=== PATIENT | female | born 1980 | race Caucasian/White ===

== ENCOUNTER 2018-10-14 07:47 | Day surgery (SDC) | payer OTHER, SELFPAY ==
[2018-10-14] VITALS (8 sets, daily range): BP systolic 96–117; BP diastolic 61–72; PULSE 57–72; RESP 14–16; TEMP 36.1–37.4; O2SAT 97–100; BMI 21.5
[2018-10-14 08:15] LABS: Internal QC Validated? YES +Cl - CLEAR BKGD; Pregnancy, Urine Negative Negative
[2018-10-14] MEDS: Vancomycin IV 1,000 MG/200 ML BAG 200 MG IV (08:37)
--- NOTE | 2018-10-14 09:47 | PCM.OPRPT ---
Problem List (1) Urinary retention Status: Acute Report of Operation Date of Procedure: 10/14/18 Pre-Operative Diagnosis: urinary retention Post-Operative Diagnosis: same Surgery/Procedure Performed:: Interstim Lead and IPG replacement Description of Surgical Findings:: Lead and IPG removed. New lead and IPG replaced into same locations. Good position with good phill on all 4 leads. Type of Anesthesia:: MAC Specimen's removed: Vancomycin Estimated Blood Loss (mL): 5cc Description of Procedure: The patient is a 38-year-old female with an InterStim that was inserted 7 years ago for urinary retention. The InterStim stopped working and started causing pain. Impedances were identified in the office. Informed consent was obtained for InterStim lead and IPG replacement. The patient was taken to the operating room and placed on the operating room table in prone position. Anesthesia monitored the head, neck, airway, IV access and vital signs throughout the case. Once anesthesia was appropriately administered, she was prepped and draped in usual sterile fashion. At this time the existing incisions for her lead insertion site and IPG were infiltrated with lidocaine 1% with epinephrine in a 1-100,000 ratio. An incision was made over the existing incisions. The fluoroscopy revealed that the lead was likely curved towards her posterior aspect. The lead was then removed in its entirety. The IPG was also removed. The needle was inserted through the S3 foramen under fluoroscopic visualization. Good phill and toe flexion were achieved. The dilator was then used and the new lead was inserted. Good response was achieved on all 4 leads. An AP view revealed good positioning of the lead in the S3 foramen curved laterally. The lead was then tunneled into the existing pocket site where the new IPG was then attached using the torque wrench and placed into the existing pocket. No impedances were identified at this time. The pocket and the lead site were closed with 3-0 interrupted Vicryl followed by 4-0 subcuticular Vicryl. The incisions were then covered with Dermabond. The patient was awakened and taken to the recovery room in good condition. There were no complications during this procedure. Grafts/Implants Used: Interstim lead and IPG - Complications none - Admit VTE Documentation VTE Present on Admission: No VTE Mechan Device Prophylaxis: None VTE Pharm Prophylaxis ordered?: No Reason prophylaxis not ordered:: Treatment Not Indicated
--- NOTE | 2018-10-14 09:50 | DCINST_ITS ---
Discharge Diet: No Restrictions Discharge Activity: May not drive while taking narcotic pain medications., - - ok to shower tomorrow. No tub bathing. Keep incisions as dry as possible May resume sexual activity in: 1 week Call your doctor if your incision/area has: Continuous Slow Oozing, Sudden Increased Bleeding, Increased Pain/ Swelling, Increased Redness, Foul Smelling Discharge, Swelling at the incision site Call your doctor if you observe: Fever of 101 or Higher, Inability to urinate, Inability to have a bowel movement, Shortness of breath, Chest pain, Calf discomfort, Uncontrolled pain Allergies/Adverse Reactions: Allergies cefaclor [From Ceclor] Allergy (Verified 10/08/18 08:07) Unknown Medications to take at Discharge Calcium Carbonate [Calcium] 500 mg PO DAILY 10/08/18 Docusate Sodium [Stool Softener] 50 mg PO DAILY 10/08/18 Loratadine [Claritin] 10 mg PO DAILY 10/08/18 Multivit with Calcium,Iron,Min [Multiple Vitamins For Women] 1 each PO DAILY 10/08/18 Sumatriptan Succinate [Imitrex] 100 mg PO PRN PRN 10/08/18 Primary Care Physician: Jimi Guerra,Out of [Primary Care Provider] - Test Results: Test results from this visit will be discussed in further detail at your follow- up appointment, if applicable. Please Follow Up With: Yasmeen Christian MD When: in 1-2 weeks. Proposed Discharge Date: 10/14/18
== END 2018-10-14 12:15 | disposition home or self-care (01) ==
LOC: SDC 07:48 → AC 07:51
PROVIDERS: Anesthesiology; Referring Provider Urology; Visit Provider Urology
PROC: (CPT 64581; principal; 2018-10-14 09:10)
DX: N31.9 Neuromuscular dysfunction of bladder, unspecified (principal); R33.9 Retention of urine, unspecified; R35.1 Nocturia; D64.9 Anemia, unspecified; G43.909 Migraine, unspecified, not intractable, without status migrainosus; Z79.899 Other long term (current) drug therapy
CPT/HCPCS: 64581; 64590; 76000; 81025; J7120; C1767; C1778; J2405

== ENCOUNTER → 2019-08-11 | Outpatient (CLI) | payer OTHER, SELFPAY ==
[2018-10-14 08:17] VITALS: BMI 21.5
== END | disposition home or self-care (01) ==
LOC: LABSPEC 08:42
PROVIDERS: Referring Provider Urology; Visit Provider Urology
DX: R30.0 Dysuria (principal)
CPT/HCPCS: 87086; 87088

== ENCOUNTER 2019-08-18 10:51 | Day surgery (SDC) | payer OTHER, SELFPAY ==
[2018-10-14 08:17] VITALS: BMI 21.5
[2019-08-18] VITALS (11 sets, daily range): BP systolic 99–115; BP diastolic 53–83; PULSE 66–88; RESP 16; TEMP 36.7–36.8; O2SAT 100; BMI 21.5
[2019-08-18 11:27] LABS: Internal QC Validated? YES +Cl - CLEAR BKGD; Pregnancy, Urine Negative Negative
[2019-08-18] MEDS: Lactated Ringers 1,000 ML 100 ML IV ×2 (11:34→14:11)
[2019-08-18] MEDS: Vancomycin IV 1,000 MG/200 ML BAG 200 MG IV (11:34)
--- NOTE | 2019-08-18 12:00 | RAD_ITS ---
STUDY: X-RAY - PELVIS REASON FOR EXAM: Female, 38 years old. CLINICAL HISTORY: INTERSTIM REMOVAL AND NEW REINSERTION, FLUORO TIME 22 SEC, 6.05 MGY, 3 IMAGES COMPARISON: None. TECHNIQUE: 3 image(s) of InterStim removal and reinsertion performed by Physician: PAM COSME were submitted for evaluation. FINDINGS: 3 images were provided for review. Stimulator leads are seen overlying the sacrum. The visualized osseous structures and soft tissues are unremarkable. RAD/Pelvis 1 or 2 Views IMPRESSION: 3 images from an InterStim lead removal and reinsertion Please see procedure report for further details. Electronically Signed: Johnny Gilmore, at 19:00 EDT Tel , Service support ,
--- NOTE | 2019-08-18 12:32 | OP.PCM_ITS ---
Problem List (1) Urinary retention Status: Acute Report of Operation Date of Procedure: 08/18/19 Pre-Operative Diagnosis: urinary retention, pain Post-Operative Diagnosis: same Surgery/Procedure Performed:: Replacement Interstim Lead and IPG Type of Anesthesia:: MAC Estimated Blood Loss (mL): 20cc Description of Procedure: The patient is a 38-year-old female that has had an InterStim for urinary retention for several years. The current lead she has was placed several years ago and the battery in October 2018. She was doing well until approximately 2 months ago when she developed pain at the battery site regardless of programming. The more the battery power was turned up, the more pain she experienced. On evaluation in the office, the battery seem to be functioning with good life remaining. She was tender at the pocket site with no evidence of infection including fluctuance, erythema, warmth to the site or other skin changes. After discussing the situation with the clearance representative from [employer], and turning the unit off, with continued pain, decision was made to replace the unit. Informed consent was obtained. Patient was taken to the operating room and placed in the prone position on the operating room table. She is appropriately secured to the table and padded in dependent portions. Anesthesia monitored the head, neck, airway, IV access and vital signs throughout the case. Once anesthesia was appropriately administered, the patient was prepped and draped in usual sterile fashion. At this time using fluoroscopic evaluation, the landmarks of the S3 foramen and ischial spines were marked on the patient's skin. The areas overlying these landmarks were infiltrated with lidocaine with epinephrine. The needle was inserted to the patient's right side S3 foramen and good phill response and toe flexion was achieved. The skin site was then opened and dilated, and the tined lead was inserted with good results specifically on leads I, II and III with no response on lead 0. The lead was repositioned and this was the best response obtained. Of note the site was bleeding and this was felt to contaminate the trial on lead 0. The positioning was checked in AP view as well. At this time the new pocket site on the patient's right side was selected, infiltrated and opened using the knife followed by Bovie cautery and blunt dissection. The lead was then tunneled into the pocket, it was cleaned and inserted into the new IPG and secured using the screwdriver. The IPG was then placed into the pocket and impedances were checked and found to be appropriate. The pocket was closed with 3-0 Vicryl interrupted suture followed by 4-0 Vicryl subcuticular suturing and Dermabond. The area overlying the old IPG and the lead sites were both infiltrated. The skin was opened and dissection continued until the IPG was brought into the field. Using the screwdriver the lead was removed and the IPG was sent for evaluation. Using the incision over the lead entry site, the lead was grasped and removed in its entirety. The sites were then irrigated and closed using 3-0 Vicryl followed by 4-0 subcuticular suturing. Over the small lead incisions, Steri-Strips and OpSite were placed. Dermabond was placed on the IPG site. The patient was then awakened and taken to the recovery room in good condition. There were no complications during the procedure. - Complications none - Admit VTE Documentation VTE Present on Admission: No VTE Mechan Device Prophylaxis: None VTE Pharm Prophylaxis ordered?: No Reason prophylaxis not ordered:: Treatment Not Indicated
--- NOTE | 2019-08-18 12:35 | PCM.DC.URO ---
Discharge Diet: No Restrictions Discharge Activity: May not drive while taking narcotic pain medications. May resume sexual activity in: 2 weeks Call your doctor if your incision/area has: Continuous Slow Oozing, Sudden Increased Bleeding, Increased Pain/ Swelling, Increased Redness, Foul Smelling Discharge, Swelling at the incision site Call your doctor if you observe: Fever of 101 or Higher, Inability to urinate, Inability to have a bowel movement, Uncontrolled pain Allergies/Adverse Reactions: Allergies cefaclor [From Ceclor] Allergy (Verified 08/18/19 11:16) Unknown Medications to take at Discharge Calcium Carbonate [Calcium] 500 mg PO DAILY 10/08/18 Docusate Sodium [Stool Softener] 50 mg PO DAILY 10/08/18 Loratadine [Claritin] 10 mg PO DAILY 10/08/18 Multivit with Calcium,Iron,Min [Multiple Vitamins For Women] 1 each PO DAILY 10/08/18 Sumatriptan Succinate [Imitrex] 100 mg PO PRN PRN 10/08/18 Fluticasone 0.05% [Flonase Nasal [place]] 2 spray NASAL DAILY 08/11/19 Oxycodone HCl/Acetaminophen [Percocet 5/325] 2 tablet PO Q8H PRN PRN 7 Days #20 tablet 08/18/19 Smz/Tmp Ds [Bactrim Ds] 1 tab PO BID 3 Days #6 tab 08/18/19 The following prescriptions were given: Smz/Tmp Ds [Bactrim Ds] 1 tab PO BID 3 Days #6 tab Transmission Status: Pending to [facility] Oxycodone HCl/Acetaminophen [Percocet 5/325] 2 tablet PO Q8H PRN PRN 7 Days #20 tablet PRN Reason: Pain Transmission Status: Sent to [facility] Primary Care Physician: OLIVER VICENTE [Other] Test Results: Test results from this visit will be discussed in further detail at your follow-up appointment, if applicable. Please Follow Up With: Yasmeen Christian MD When: call for appt in 2 weeks Proposed Discharge Date: 08/18/19
[2019-08-18] MEDS: oxyCODONE 5 MG Tablet 10 MG PO (15:26)
[2019-08-18] MEDS: Acetaminophen 325 MG Tablet 650 MG PO (15:26)
== END 2019-08-18 15:39 | disposition home or self-care (01) ==
LOC: SDC 10:54 → AC 10:58
PROVIDERS: Referring Provider Urology; Visit Provider Urology
PROC: (CPT 64590; principal; 2019-08-18 12:35)
DX: N31.9 Neuromuscular dysfunction of bladder, unspecified (principal); R33.9 Retention of urine, unspecified; R10.2 Pelvic and perineal pain; R39.11 Hesitancy of micturition; G43.909 Migraine, unspecified, not intractable, without status migrainosus
CPT/HCPCS: 00300; 64590; 72170; 76000; 81025; J7120; C1767; C1778

== ENCOUNTER 2022-07-26 05:54 | Day surgery (SDC) | payer OTHER, SELFPAY ==
[2022-07-26] VITALS (7 sets, daily range): BP systolic 88–103; BP diastolic 47–66; PULSE 63–80; RESP 16; TEMP 36.6–36.9; O2SAT 100; BMI 19.1
[2022-07-26 06:35] LABS: Internal QC Validated? YES +Cl - CLEAR BKGD; Pregnancy, Urine Negative Negative
[2022-07-26] MEDS: Vancomycin IV 1,000 MG/200 ML BAG 200 MG IV (07:18)
[2022-07-26] MEDS: Lactated Ringers 1,000 ML 15 ML IV (07:20)
[2022-07-26] MEDS: Lidocaine 2% /Epi 1:100 (20ml) 20 ML VIAL (07:46)
--- NOTE | 2022-07-26 08:16 | DCINST_ITS ---
Discharge Instructions Diet Discharge Diet: No restrictions Activity Discharge Activity: May Shower (tomorrow) May resume sexual activity in: 1 week Dressing / Incision Call your doctor if your incision/area has: Continuous Slow Oozing, Sudden Increased Bleeding, Increased Pain/ Swelling, Increased Redness, Foul Smelling Discharge and Swelling at the incision site Call your doctor if you observe: Fever of 101 or Higher, Inability to urinate and Inability to have a bowel movement Cleanse incision/area with: - (Do not remove the skin glue, leave it until it falls off) Follow Up Care Please Follow Up With: Yasmeen Christian MD When: 2-3 weeks, call the office for appointment Test Results: Test results from this visit will be discussed in further detail at your follow- up appointment, if applicable. Discharge Plan Admission Attending Provider: Yasmeen Christian Primary Care Provider: OLIMPIA TSE Discharge Orders/Prescriptions Prescriptions: New oxycodone-acetaminophen [Percocet] 5-325 mg tablet 1 tab PO Q8H PRN (Reason: pain) 3 Days Qty: 10 0RF doxycycline monohydrate 100 mg capsule 100 mg PO BID Qty: 6 0RF Continued Multiple Vitamin, Womens 1 EACH tablet 1 ea PO DAILY fluticasone propionate 1 SPRAY spray,suspension 2 spray NASAL DAILY Ubrelvy 100 mg tablet 100 mg PO QWEEK PRN (Reason: Migraine Headache) tretinoin 0.025 % cream 1 applic TOPICAL QHS Label Comments: Use 1 (ONE) application ONCE DAILY AT BEDTIME spironolactone 100 mg tablet 100 mg PO BID Label Comments: TAKE 1 TABLET TWICE DAILY citalopram 20 mg tablet 20 mg PO DAILY Label Comments: TAKE 1 TABLET EVERY DAY eszopiclone 2 mg tablet 2 mg PO QHS Label Comments: TAKE 1 TABLET BY MOUTH AT BEDTIME Faisal 24 Fe 1 mg-20 mcg (24)/75 mg (4) Tablet 1 tab PO DAILY Referrals / Follow Up: OLIMPIA TSE [Other] Disposition Disposition (needs filled in before D/C Order can be placed): Home, Self Care
[2022-07-26] MEDS: Ketorolac 30 MG/ML Syringe IV (09:17)
[2022-07-26] MEDS: Acetaminophen 325 MG Tablet PO (09:19)
[2022-07-26] MEDS: oxyCODONE 5 MG Tablet PO (09:19)
--- NOTE | 2022-07-26 13:58 | OP.PCM_ITS ---
Report of Operation Date of Procedure: 07/26/22 Pre-Operative Diagnosis: Urinary retention and back pain Post-Operative Diagnosis: Same Surgery/Procedure Performed:: InterStim pocket revision Surgeon: Yasmeen Christian Type of Anesthesia: MAC Specimen's removed: None Description of Procedure: The patient is a 41-year-old female with longstanding urinary retention and succ essful InterStim management. She developed significant pain at the pocket site and now presents for revision. The InterStim itself is still functioning and she is voiding without difficulty. She was taken to the operating room and placed in a prone position on the operating room table. Anesthesia monitored the head, neck, airway, IV access and vital signs throughout the case. Once anesthesia was appropriately administered, the patient was prepped and draped in usual sterile fashion. The area overlying her pocket was infiltrated with lidocaine. The skin was opened with a knife and the battery was identified and brought into the operative field. There was no evidence of infection, no odor, no old blood or fluid collection. The patient having not much fat, the largest fat pocket available on the right side was slightly medial to the existing pocket site. This was discussed with the patient preoperatively and the decision was made to move the pocket site in a more medial direction without overlying the sacrum. The pocket was enlarged medially and hemostasis was obtained using the Bovie cautery. The the battery was inserted into the new pocket and the old pocket site was closed using 3-0 PDS. At this time the dermis was closed using 3-0 interrupted Vicryl and the skin was closed using 4-0 subcuticular closure followed by skin glue. The patient was then awakened and taken to the recovery room in good condition. There were no complications during this procedure. Grafts/Implants Used: None Complications None Admit VTE Documentation VTE Present on Admission: No VTE Mechan Device Prophylaxis: None VTE Pharm Prophylaxis ordered?: No Reason prophylaxis not ordered:: Treatment Not Indicated
== END 2022-07-26 10:01 | disposition home or self-care (01) ==
LOC: SDC 06:00 → AC 06:01
PROVIDERS: Anesthesiology; Referring Provider Urology; Visit Provider Urology
PROC: (CPT 64585; principal; 2022-07-26 07:20)
DX: R33.9 Retention of urine, unspecified (principal); R39.11 Hesitancy of micturition; R10.2 Pelvic and perineal pain; N31.9 Neuromuscular dysfunction of bladder, unspecified; F41.9 Anxiety disorder, unspecified; Z79.899 Other long term (current) drug therapy
CPT/HCPCS: 64585; 00300; 81025; J7120; J2405

== ENCOUNTER 2022-08-03 16:54 | Day surgery (SDC) | payer OTHER, SELFPAY ==
[2022-08-03 16:54] VITALS: BP 111/88; PULSE 83; RESP 18; TEMP 35.2; O2SAT 100; BMI 19.0
[2022-08-03 17:43] VITALS: BMI 19.0
--- NOTE | 2022-08-03 17:43 | EDS_ITS ---
HPI History of Present Illness Chief Complaint: Wound Informant: patient Narrative Narrative: Patient presents from Dr. Christian's for evaluation and plan to go to the OR this evening at 7 PM. Patient has a stimulator placed in her right buttock for bladder control. On the she had a surgery to washout the pocket. A week later she developed redness and itching around the site. There is concerned that it is now infected and plan is to go to the OR tonight. Patient denies fever or chills. She last ate at 1030 this morning and had a smoothie around 1:30 PM. [facility] Medical History Alcohol use Anxiety Back pain History of pain when walking Migraine headache Non-smoker Orthodontics Wears contact lenses Wears glasses Home Medications ylbophnymntg-Vu-juel-minerals (Multiple Vitamin, Womens tablet) 1 ea PO DAILY 10/08/18 [History Last Taken Unknown] fluticasone propionate 50 mcg/actuation nasal spray,suspension 2 spray NASAL DAILY 08/11/19 [History Last Taken Unknown] citalopram 20 mg tablet 20 mg PO DAILY 07/19/22 [History Last Taken Unknown] eszopiclone 2 mg tablet 2 mg PO QHS 07/19/22 [History Last Taken Unknown] spironolactone 100 mg tablet 100 mg PO BID 07/19/22 [History Last Taken Unknown] tretinoin 0.025 % topical cream 1 applic topical QHS 07/19/22 [History Last Taken Unknown] ubrogepant 100 mg tablet (Ubrelvy) 100 mg PO QWEEK PRN Migraine Headache 07/19/22 [History Last Taken Unknown] doxycycline monohydrate 100 mg capsule 100 mg PO BID #6 caps 07/26/22 [Rx Last Taken Unknown] norethindrone 1 mg-ethinyl estradiol 20 mcg (24)-iron 75 mg (4) tablet (Faisal 24 Fe) 1 tab PO DAILY 07/26/22 [History Last Taken Unknown] oxycodone-acetaminophen 5 mg-325 mg tablet (Percocet) 1 tab PO Q8H PRN pain 3 days #10 tabs 07/26/22 [Rx Last Taken Unknown] Allergy/AdvReac Type Severity Reaction Status Date / Time cefaclor [From Ceclor] Allergy Unknown Verified 07/26/22 06:29 Surgical History Hx of section Hx of colonoscopy Hx of surgical procedure Social History Smoking Status: Never smoker ROS ROS ED Constitutional Constitutional ED: Denies chills or fever(s) Eyes Eyes: Denies change in vision or discharge from eye(s) ENT ENT ED: Denies discharge from eye(s), rhinorrhea or sore throat Cardiovascular Cardiovascular: Denies chest pain or palpitations Respiratory/Chest Respiratory/Chest: Denies cough or dyspnea Gastrointestinal Gastrointestinal: Denies abdominal pain, diarrhea, nausea or vomiting Genitourinary Genitourinary ED: Denies difficulty urinating or dysuria Musculoskeletal Musculoskeletal: Denies back pain or extremity pain Integumentary Reports rash; Denies Abrasions Neurologic Neurologic: Denies headache(s) or weakness Psychiatric Psychiatric: Denies anxiety or depression Allergic/Immunologic Allergic/Immunologic ED: Denies lip swelling or urticaria EXAM Physical Exam Const Vital Signs: 08/03/22 16:54 Temperature 95.3 F L Temperature Source Temporal Pulse Rate 83 Respiratory Rate 18 Blood Pressure 111/88 H Blood Pressure Mean 95 Pulse Ox 100 Oxygen Delivery Method Room Air Positive well nourished and well developed General Appearance ED: well developed HEENT Reports normocephalic and head/scalp atraumatic Eyes PERRL and EOMs intact bilaterally Neck supple Chest Wall inspection of chest normal and palpation of chest normal Resp normal respiratory effort and clear to auscultation bilaterally Cardio regular rate and regular rhythm GI normal to inspection, nondistended, normoactive bowel sounds Palpation: soft Back/Spine Back/Spine Narrative: Healing incision of the right buttock. 15 x 9 cm area of erythema over the implant site. No fluctuance or drainage. Extremity normal to inspection Neuro oriented x3 and no sensory deficits noted Sensorium / Orientation: alert Motor Exam: strength 5/5 throughout Psych mental status grossly normal MDM MDM MDM Narrative Medical decision making narrative: Dr. Christian had called in asking us to start an IV and keep her n.p.o. Surgery packet is completed. Patient is given a dose of vancomycin. Plan will be to the OR when ready. Discharge Plan Triage Chief Complaint: Wound ED Provider: Bree Musa Dx/Rx/DC Orders Clinical Impression: Infection of implant site Prescriptions: No Action Multiple Vitamin, Womens 1 EACH tablet 1 ea PO DAILY fluticasone propionate 1 SPRAY spray,suspension 2 spray NASAL DAILY Ubrelvy 100 mg tablet 100 mg PO QWEEK PRN (Reason: Migraine Headache) tretinoin 0.025 % cream 1 applic TOPICAL QHS Label Comments: Use 1 (ONE) application ONCE DAILY AT BEDTIME spironolactone 100 mg tablet 100 mg PO BID Label Comments: TAKE 1 TABLET TWICE DAILY citalopram 20 mg tablet 20 mg PO DAILY Label Comments: TAKE 1 TABLET EVERY DAY eszopiclone 2 mg tablet 2 mg PO QHS Label Comments: TAKE 1 TABLET BY MOUTH AT BEDTIME Faisal 24 Fe 1 mg-20 mcg (24)/75 mg (4) Tablet 1 tab PO DAILY oxycodone-acetaminophen [Percocet] 5-325 mg tablet 1 tab PO Q8H PRN (Reason: pain) 3 Days Qty: 10 0RF doxycycline monohydrate 100 mg capsule 100 mg PO BID Qty: 6 0RF Primary Care Provider: NOT,DEFINED Referrals: NOT,DEFINED [Primary Care Provider] - Disposition Disposition: Acute Care Hospital [facility]
[2022-08-03 19:32] VITALS: BP 121/78; PULSE 81; RESP 16; TEMP 36.6; O2SAT 98
== END 2022-08-03 22:00 | disposition home or self-care (01) ==
LOC: ED 18:34 → SDC 19:37 → ACINP 19:37
PROVIDERS: Emergency Provider Emergency Medicine; Visit Provider Urology
DX: T85.734A Infection and inflammatory reaction due to implanted electronic neurostimulator, generator, initial encounter (principal); Y75.2 Prosthetic and other implants, materials and neurological devices associated with adverse incidents; F41.9 Anxiety disorder, unspecified; Z79.899 Other long term (current) drug therapy; R33.9 Retention of urine, unspecified
CPT/HCPCS: 63688; 63661; 87070; 87075; 87205; 99282; J7030; J7050; A4216; J2405

== ENCOUNTER 2022-09-20 07:14 | Day surgery (SDC) | payer OTHER, SELFPAY ==
[2022-09-20] VITALS (9 sets, daily range): BP systolic 101–122; BP diastolic 55–78; PULSE 64–81; RESP 16–18; TEMP 36.4–36.7; O2SAT 96–100; BMI 19.3
[2022-09-20 07:36] LABS: Internal QC Validated? YES +Cl - CLEAR BKGD
[2022-09-20] MEDS: Lactated Ringers 1,000 ML 15 ML IV (07:38)
[2022-09-20 07:40] LABS: Pregnancy, Urine Negative Negative
--- NOTE | 2022-09-20 07:49 | DCINST_ITS ---
Discharge Instructions Diet Discharge Diet: No restrictions Activity Discharge Activity: May Drive (when not taking pain medication) and May Shower (on Saturday) Dressing / Incision Call your doctor if your incision/area has: Continuous Slow Oozing, Sudden Increased Bleeding, Increased Pain/ Swelling, Increased Redness, Foul Smelling Discharge and Swelling at the incision site Call your doctor if you observe: Fever of 101 or Higher, Inability to urinate and Inability to have a bowel movement Suture Line Care: Avoid Pulling/Pushing (for 2 days) and Avoid Pinching/Bending (for 2 days) Change Dressing in: do not change dressing (do not remove skin glue, let it fall off) Cleanse incision/area with: - Follow Up Care Please Follow Up With: Yasmeen Christian MD When: 2-3 weeks, call for appt Test Results: Test results from this visit will be discussed in further detail at your follow- up appointment, if applicable. Discharge Plan Admission Attending Provider: Yasmeen Christian Primary Care Provider: OLIMPIA TSE Discharge Orders/Prescriptions Prescriptions: New sulfamethoxazole-trimethoprim [sulfamethoxazole-trimethoprim] 800-160 mg tablet 1 tab PO BID 3 Days Qty: 6 0RF oxycodone-acetaminophen [Percocet] 5-325 mg tablet 1 tab PO Q8H PRN (Reason: pain) 3 Days Qty: 10 0RF Continued Multiple Vitamin, Womens 1 EACH tablet 1 ea PO DAILY fluticasone propionate 1 SPRAY spray,suspension 2 spray NASAL DAILY Ubrelvy 100 mg tablet 100 mg PO QWEEK PRN (Reason: Migraine Headache) tretinoin 0.025 % cream 1 applic TOPICAL QHS Label Comments: Use 1 (ONE) application ONCE DAILY AT BEDTIME spironolactone 100 mg tablet 100 mg PO BID Label Comments: TAKE 1 TABLET TWICE DAILY citalopram 20 mg tablet 20 mg PO DAILY Label Comments: TAKE 1 TABLET EVERY DAY eszopiclone 2 mg tablet 2 mg PO QHS Label Comments: TAKE 1 TABLET BY MOUTH AT BEDTIME Faisal 24 Fe 1 mg-20 mcg (24)/75 mg (4) Tablet 1 tab PO DAILY Referrals / Follow Up: O[facility] TSE [Other] Disposition Disposition (needs filled in before D/C Order can be placed): Home, Self Care
--- NOTE | 2022-09-20 07:53 | PCM.OPRPT ---
Report of Operation Date of Procedure: 09/20/22 Pre-Operative Diagnosis: urinary retention Post-Operative Diagnosis: same Surgery/Procedure Performed:: Axonics Stage 1 and 2 Surgeon: Yasmeen Christian Type of Anesthesia: MAC Description of Procedure: The patient is a 42-year-old female who needs sacral neuromodulation in order to successfully treat her urinary retention. We just adjusted her battery recently and she developed a reaction or infection with a negative culture. The entire unit was removed. She now presents for Axonics stage I and II. Informed consent was obtained. The patient was taken to the operating room and placed on the operating table in a prone position. She was appropriately padded and secured to the table. Anesthesia monitored the head, neck, airway, IV access and vital signs throughout the case. Once anesthesia was appropriately administered, the patient was prepped and draped in usual sterile fashion. Using fluoroscopic visualization, the outline of the pelvic anatomy was drawn onto her back. The area overlying the S3 foramen on the left side was infiltrated with 1% lidocaine with epinephrine. The lead was passed through the S3 foramen with good stimulation response. The [employer] was then passed and an incision was made. The lead was then placed through the dilator. Good responses with hpill and great toe flexion on the left side was obtained on all 4 leads. The sheath from the dilator was then removed leaving the lead in place. Fluoroscopically good placement was confirmed. A pocket site was then selected and this area was infiltrated with local anesthetic. An incision was made and blunt and sharp dissection were used to create the new pocket site. Once hemostasis was obtained, the lead was tunneled into the site. It was cleaned and inserted into the battery and secured using the torque wrench. The battery was placed into the pocket site. Good connections were confirmed. The incisions were then closed in 2 layers with 3-0 Vicryl followed by 4-0 Monocryl subcuticular suturing. Dermabond was applied and allowed to dry. The patient was then awakened and taken to the recovery room in good condition. There were no complications during this procedure. Grafts/Implants Used: Axonics lead and battery Complications none Admit VTE Documentation VTE Present on Admission: No VTE Mechan Device Prophylaxis: None VTE Pharm Prophylaxis ordered?: No Reason prophylaxis not ordered:: Treatment Not Indicated
[2022-09-20] MEDS: Vancomycin IV 1,000 MG/200 ML BAG 200 MG IV (09:21)
--- NOTE | 2022-09-20 09:23 | RAD_ITS ---
EXAM: Limited intraoperative study of the pelvis HISTORY: AXONICS STAGE 1 2 COMPARISON: None Technique: 2 fluoroscopic images obtained during AXONICS placement. 19.5 seconds of fluoroscopy, radiation dose of 7.58mGY FINDINGS: No intraoperative complications noted during AXONICS placement. RAD/Pelvis 1 or 2 Views IMPRESSION: No intraoperative complications noted during AXONICS placement Electronically Signed: Renan Houser MD at 10:11 EDT ,
[2022-09-20] MEDS: Lidocaine 1% /Epi 1:100 (20ml) 20 ML Vial (09:56)
== END 2022-09-20 12:33 | disposition home or self-care (01) ==
LOC: SDC 07:14 → AC 07:16
PROVIDERS: Anesthesiology; Referring Provider Urology; Visit Provider Urology
PROC: (CPT 64590; principal; 2022-09-20 08:40)
DX: R33.9 Retention of urine, unspecified (principal); N31.9 Neuromuscular dysfunction of bladder, unspecified; F41.9 Anxiety disorder, unspecified; R39.11 Hesitancy of micturition; Z79.899 Other long term (current) drug therapy; Z87.440 Personal history of urinary (tract) infections
CPT/HCPCS: 64590; 64561; 00300; 72170; 76000; 81025; J7120; A4216; J2405

== ENCOUNTER → 2023-11-15 | Outpatient (CLI) | payer OTHER, SELFPAY ==
--- NOTE | 2023-11-15 09:55 | RAD_ITS ---
INDICATION: KUB-URINARY RETENTION EXAMINATION/TECHNIQUE: X-RAY - XR Abdomen 1 View COMPARISON: No relevant prior comparison study available FINDINGS: BOWEL GAS PATTERN: Non-obstructive. No bowel or stomach distention. FREE AIR: Not assessed on a single supine view. ORGANOMEGALY: Not seen. CALCIFICATIONS: No abnormal calcifications observed. LOWER CHEST: No acute pathology. BONES AND SOFT TISSUES: Battery pack with wires extending to the upper pelvic region consistent with history of Axonics device. No demonstrated acute osseous changes. RAD/Abdomen Single View IMPRESSION: Non-obstructive bowel gas pattern. Electronically Signed: Vic Tavera MD at 11:28 EDT ,
== END | disposition home or self-care (01) ==
LOC: MTRAD 09:52
PROVIDERS: Referring Provider Urology; Visit Provider Urology
DX: R33.9 Retention of urine, unspecified (principal)
CPT/HCPCS: 74018